=== PATIENT | female | born 1965 | race Caucasian/White ===

== ENCOUNTER 2025-01-30 03:49 | Observation (INO) | payer SELFPAY ==
[2025-01-30 04:04] VITALS: BP 109/60; PULSE 110; RESP 18; TEMP 36.6; O2SAT 98; BMI 14.8
[2025-01-30 04:14] VITALS: O2SAT 98
--- OUTSIDE RECORDS SUMMARY | 2025-01-30 04:22 | XMS_ITS | Encounter Summary ---
Author Organization [facility] Address [address] [place] [address]. [place] [address] Care Team Providers Care Material Expeditor Name Role Phone Zachary Roth MD Primary Care Provid er Meño Gilbert MD Primary Care Provider Rosanna Cespedes MD Primary Care Provider [phone] Gayle Booth MD Primary Care Provider [phone]- [phone] Encounter Details Date Type Department Care Team (Late st Contact Info) Description 04/14/2003 [facility] [address] [place] [address] Sia Diaz MD XXX RETIRED XXX [address], [place] [address] H&P,OP REPORT (Primary Dx) Social History Tobacco Use Types Packs/Day Years Used Date Smoking Tobacco: Never Smokeless Tobacco: Never Alcohol Use Standard Drinks/Week Comments Yes 0 (1 standard drink = 0.6 oz pur e alcohol) once a month Comments No Sex and Gender Information Value Date Recorded Sex Assigned at Not on file Legal 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 She is being admitted to [facility] for h ysteroscopy and D&C. The patient's periods have been irregular and heavy at times, and recently, she had a heavy prolonged period, lasting over two weeks. These periods have been interfering with her l calderon. Because of the persistence of symptoms, decision was made to do a diagnostic and hopefully ther apeutic D&C. PAST MEDICAL HISTORY: The patient has been treated for Hodgkin's disease with lymph no de biopsies in 1982 and 1991. She has had chemotherapy and radiation. SURGERIES: A sectio n in 1991. ALLERGIES: EES, penicillin, and codeine. BLOOD TRANSFUSIONS: Had a transfusion in the past. BLEEDING TENDENCIES: See present illness. FAMILY HISTORY: Parents living and well. Sibling s living and well. SOCIAL HISTORY: The patient is , lives with her and family. HABI TS: Tobacco: None. Alcohol: None. MEDICATIONS: None. REVIEW OF SYSTEMS: Denies headache, shor tness of breath, or chest pain. Appetite good. Bowels regular. Denies frequency, dysuria, or hemat uria. 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 PHYSICAL EXAMINATION: General appearance is that of a healthy- appearing lady in no apparent distress. Blood pressure 108/70, pulse 80, temperature 98, he ight 5'10, weight 166. HEAD: Normocephalic. EYES: Pupils equally reactive to light and accommodat ion. Extraocular muscles intact. EARS: Tympanic membranes clear. NOSE: Clear. THROAT: Not injec eren. NECK: Supple. Thyroid not enlarged. No adenopathy. LUNGS: Clear to auscultation. HEART: No murmurs. Regular rhythm. BREASTS: No masses. ABDOMEN: Soft, nontender. No masses. Liver, spl een, kidneys not felt to be enlarged. BACK: Normal configuration. No CVA tenderness. EXTREMITIES: No cyanosis or edema. SKIN: Normal color and turgor. NEUROLOGIC EXAM: Grossly normal. PELVIC EXAM INATION: External genitalia normal. Vaginal clean. The cervix is clean. The fundus is anterior, no rmal. Adnexa: No masses. RECTOVAGINAL EXAMINATION: Confirms the above. LABORATORY: Pap smear ne gative. Ultrasound reveals retroflexed uterus with thickened endometrium measuring 19 mm, normal sheyla earing ovaries. IMPRESSION AT THE TIME OF ADMISSION: Dysfunctional uterine bleeding in patient with thickened endometrium. PLAN: Hysteroscopy, dilatation and curettage. [id number] _ [place]: Document: [id number] [place], [place] Name: ZOLTAN JOSE HISTORY AND PHYSCIAL Page 2 of 2 LCN: SDS DSC: 04/14/2003 [place], [place] Name: MR#: : Admit Date: JASRoxana BENJY RODRIGUEZ Migel [id number] 1965 04/14/2003 Doctor: SIA DIAZ MD HISTORY AND PHYSICAL Page 1 of 2 00:00 Operative Report-[facility] SIA DIAZ () [Entered: Transcriptio n ([employer])] : 61 1st ASS'T: 2nd ASS'T: PRE-OPERATIVE DIAGNOSIS: Dysfunctional uterine blee ding mainly in the form of menorrhagia. POST-OPERATIVE DIAGNOSIS: Dysfunctional uterine bleeding ma inly in the form of menorrhagia; pending pathology report. OPERATION: Examination under anesthesia; hysteroscopy; fractional dilation and curettage. HISTORY: Zoltan Jose is a 37-year-old para 2-0-0-2, whose last menstrual period began on 03/28/03, whose periods have been irregular, and then re cently had a prolonged bleeding for over two weeks which was heavy. Bleeding has been interfering wi th her life, patient is concerned about it and decision made to do a diagnostic, as well as hopefully therapeutic D&C. Under satisfactory general anesthesia, the patient was prepped and draped in litho andie position. Examination revealed a clean cervix, uterus anterior and normal size, no adnexal mass es felt. The anterior lip of the cervix was grasped with a Umer tenaculum, the uterine cavity was s ounded to 9 cm. The internal os then dilated to #6 Hegar and then a 0 degree hysteroscope was insert ed and visualization was good with the aid of saline. The uterine cavity reveals a lot of ragged end ometrial tissue but no polyps or fibroids or other growths were noted. Hysteroscope was then removed and the internal os dilated to #7 Hegar and the endocervix was then sharply curetted productive of mi nimal if any tissue. This was followed by sharp curettage of the endometrial cavity productive of a moderate amount of appeared to be innocent endometrial tissue. This was followed by exploration with Yinka stone forceps. Small amount of endometrial tissue, no other pathology noted. The uterus onc e more sharply curetted, no tissue obtained. The procedure was terminated. BLOOD LOSS: Estimated t o be 10 cc. Sponge counts were correct. The patient had tolerated the procedure well and was discha rged from the operating room in stable condition. [id number]_ SIA DIAZ MD MT: Document: [id number] [place], [place] Na me: ZOLTAN JOSE LCN: SDS DSC: 04/14/2003 [facility] Name: MR#: : Procedure Date: ZOLTAN JOSE [id number] 04/14/2003 Doctor: SIA DIAZ MD OPERATIVE REPORT Page 1 of 2 Electronically filed by Anum Gillis 2:48 PM documented in this encounter Plan of Treatment Not on file documented as of this encounter Visit Diagnoses Diagnosis H&P,OP REPORT- Primary documented in this encounter Care Teams Material Expeditor Relationship Specialty Start Date End Date Zachary Roth MD PCP - General 06/25/06 10/04/12 Meño Gilbert [place] [address] PCP - General 03/12/03 06/24/06 [place] [address] [place] [address] PCP - General 10/05/12 07/27/23 Gayle Booth MD [facility] [address] [place] [address] PCP - General Hematology & Oncology 07/28/23 documented as of this encounter
--- OUTSIDE RECORDS SUMMARY | 2025-01-30 04:22 | XMS_ITS | Clinical Summary ---
Author Organization [facility] Address [address] [place] [address] Care Team Providers Care Dog Behaviorist Name Role Phone Gayle Booth MD Primary Care Provider [phone] Allergies Active Allergy Reactions Criticality Noted Date Comments Anesthetic Ether 06/26/2006 Super hyper and anxiety. Codeine Nausea and Vomiting 07/28/2023 Erythromycin 01/17/2002 Morphine And Codeine 01/17/2002 Penicillins 01/17/2002 Medications NO ACTIVE MEDICATIONS . Active meclizine (ANTIVERT) 25 MG tablet Take 1 tablet (25 mg) by mouth every 6 hours as needed for dizziness 20 tablet 0 5 Active valACYclovir (VALTREX) 1000 mg tabletIndication s:HSV (herpes simplex virus) infection Take 1 tablet (1,000 mg) by mouth 2 times daily 10 tablet 2 0 Active Active Problems Problem Noted Date Diagnosed Date CARDIOVASCULAR SCREENING; LDL GOAL LESS THAN 160 02/20/2010 Hodgkin's disease of lymph nodes of multiple sit es 03/29/2004 Overview (01/21/2015): Problem list name updated by automated process. Provider to review Embolism and thrombosis 01/17/2002 Overview (01/21/2015): Problem list name updated by automated process. Provider to review Resolved Problems Problem Noted Date Diagnosed Date Resolved Date Hodgkin's disease of lymph n odes of multiple sites 01/17/2002 09/07/2006 Overview (01/21/2015): Problem list name updated by automated process. Provider to review Family History Medical History Relation Comments Family History Negative Father Cancer Maternal Grandfather pancreatic Family History Negative Mother Prostate Cancer Paternal Grandfather Family History Negative Sister 1 Family History Negative Sister 2 Breast Cancer No family hx of Cancer - colorectal No family hx of Relation Status Comments Father Maternal Grandfather Mother Paternal Grandfather Sister 1 Sister 2 Social History Tobacco Use Types Packs/Day Years Used Date Smoking Tobacco: Never Smokeless Tobacco: Never Alcohol Use Standard Drinks/Week Comments Yes 0 (1 standard drink = 0.6 oz pur e alcohol) once a month Adolescent Education Answer Date Record ed Getting School Help Needed Not on file 07/28 Comments No Sex and Gender Information Value Date Recorded Sex Assigned at Not on file Legal Sex Female 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 Gender Identity Not on file Sexual Orientation Not on file 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 on file Not on file Last Filed Vital Signs Vital Sign Reading Time Taken Comments Blood Pressure 126/77 07/28/2023 4:25 AM CDT Pulse 98 07/28/2023 4:25 AM CDT Temperature 36.7 C (98 F) 07/28/2023 4:25 AM CDT Respiratory Rate 20 07/28/2023 4:25 AM CDT Oxygen Saturation 98% 07/28/2023 4:25 AM CDT Inhaled Oxygen Concentration - - Weight 72.6 kg (160 lb) 01/11/2015 1:39 PM CDT Height 177.8 cm (5' 10) 01/11/2015 1:39 PM CDT Body Mass Index 22.96 01/11/2015 1:39 PM CDT Plan of Treatment Health Maintenance Due Date Last Done Comments ADVANCE CARE PLANNING 1965 ANNUAL REVIEW OF HM ORDERS 1963 CT COLONOGRAPHY 1963 FIT 1963 FLEX SIG 1963 sDNA (Cologuard) 1963 COVID-19 VACCINE (#1) 1968 COLONOSCOPY 1973 COLORECTAL CANCER SCREENING 1973 PNEUMOCOCCAL VACCINE 50+ YEARS (1 of 2 - PCV) 1982 ZOSTER VACCINE (1 of 2) 1982 DTAP/TDAP/TD VACCINE (1 - Tdap) 1988 LIPID 2003 YEARLY PREVENTIVE VISIT 01/12/2016 01/11/2015, 04/26 MAMMO SCREENING 12/09/2022 12/09/2020, 11/21, 04/12/2015, Additional history exists PHQ-2 (once per calendar year) 2024 INFLUENZA VACCINE (#1) 2024 02/15/2011 HPV TEST 03/11/2025 01/11/2015 PAP 03/11/2025 03/11/2020, 12/23, 02/06/2012, Additional history exists DIABETES SCREENING 07/27/2026 07/28/2023, 1 05/21/2014, 10/04/2012, Additional history exists RSV VACCINE (1 - 1-dose 75+ series) 2038 HEPATITIS C SCREENING Completed 06/30/2008 HIV SCREENING Completed 06/30/2008 HPV VACCINE (No Doses Required) Completed MENINGITIS VACCINE Aged Out No longer eligible based on patient's age to complete this topic Procedures Procedure Name Priority Date/Time Associated Diagnosis Comments COMPREHENSIVE METABOLIC PANEL STAT 07/28/2023 4:20 AM CDT MA SCREEN WITH IMPLANTS DIGITAL BILAT Routine 04/12/2015 2:16 PM CLOTH HANDLER Visit for screening mammogram HPV HIGH RISK TYPES DNA CERVICAL Routine 01/11/2015 1:45 PM CDT Screening for malignant neoplasm of cervix PAP IMAGED THIN LAYER SCREEN Routine 01/11/2015 12:00 AM CDT Screening for malignant neoplasm of cervix HCL HIV 1 & 2 ANTIBODY Routine 1:34 PM CDT Screening Examination for Venereal Disease HCL HEPATITIS C VIRUS ANTIBODY Routine 06/30/2008 1:34 PM CDT Screening Examination for Venereal Disease from Last 3 Months or Most Recently Relevant to Health Maintenance Results * (ABNORMAL) Comprehensive metabolic panel (07/28/2023 4:20 AM CDT) [facility] Sodium 138 135 - 145 mmol/L 07/28/2023 4:59 AM [facility] Comment:Reference intervals for this test were updated on 01/16/2023 to more accurately reflect our healthy population. There may be differences in the flagging of prior results with similar values performed with this method. Interpretation of those prior results can be made in the context of the updated reference intervals. Potassium 3.9 3.4 - 5.3 mmol/L 07/28/2023 4:59 AM [facility] Carbon Dioxide (CO2) 22 22 - 29 mmol/L 07/28/2023 4:59 AM [facility] Anion Gap 15 7 - 15 mmol/L 07/28/2023 4:[address] [facility] Urea Nitrogen 15.4 8.0 - 23.0 mg/dL 07/28/2023 4:59 AM [facility] Creatinine 0.59 0.51 - 0.95 mg/dL 07/28/2023 4:59 AM [facility] GFR Estimate >90 >60 mL/min/1. 73m2 07/28/2023 4:59 AM [facility] Calcium 9.9 8.8 - 10.2 mg/dL 07/28/2023 4:59 AM CDT LABORATORY Chloride 101 98 - 107 mmol/L 07/28/2023 4:59 AM T LABORATORY Glucose 100(H) 70 - 99 mg/dL 07/28/2023 4:[address] [facility] Alkaline Phosphatase 111 40 - 150 U/L 07/28/2023 4:[address] [facility] Comment:Reference intervals for this test were updated on 03/06/2023 to more accurately reflect our healthy population. There may be differences in the flagging of prior results with similar values performed with this method. Interpretation of those prior results can be made in the context of the updated reference intervals. AST 28 0 - 45 U/L 07/28/2023 4:59 AM CDT LABORATORY Comment:Reference intervals for this test were updated on 10/02/2022 to more accurately reflect our healthy population. There may be differences in the flagging of prior results with similar values performed with this method. Interpretation of those prior results can be made in the context of the updated reference intervals. ALT 24 0 - 50 U/L 07/28/2023 4:59 AM CDT LABORATORY Comment:Reference intervals for this test were updated on 10/02/2022 to more accurately reflect our healthy population. There may be differences in the flagging of prior results with similar values performed with this method. Interpretation of those prior results can be made in the context of the updated reference intervals. Protein Total 7.2 6.4 - 8.3 g/dL 07/28/2023 4:59 AM CDT LABORATORY Albumin 3.8 3.5 - 5.2 g/dL 07/28/2023 4:59 AM CDT LABORATORY Bilirubin Total 0.6 <=1.2 mg/dL 07/28/2023 4:59 AM CDT LABORATORY Blood STRUCTURE OF LEFT UPPER LIMB / Unknown Venipuncture / Unknown 07/28/2023 4:20 AM CDT 07/28/2023 4:29 AM CDT Meño Chandra MD LAB - BLOOD ORDERABLES Jael ash Result LABORATORY [facility] [address] 1[address] floor, Room [address] [place] [address] * MA Screen w Implants Digital Bilat (04/12/2015 2:16 PM CLOTH HANDLER) Anatomical Region Laterality Modality Breast Bilateral Mammography Impressions 04/12/2015 2:23 PM CLOTH HANDLER IMPRESSION: BI-RADS CATEGORY: 2 - Benign Finding(s). RECOMMENDED FOLLOW-UP: Annual Mammography Exam results letter mailed to patient. LASHON DOTY MD Narrative 04/12/2015 2:23 PM CLOTH HANDLER SCREENING MAMMOGRAM, BILATERAL, DIGITAL PUNEET w/CAD - 04/12/2015 2:16 PM. BREAST SYMPTOMS: No current breast complaints. COMPARISON: 10/28/2012. BREAST DENSITY: Heterogeneously dense. COMMENTS: No findings of suspicion for malignancy. Bilateral breast implants obscure portions of underlying breast parenchymal tissue, limiting sensitivity. Procedure Note Lashon Doty MD - 04/12/2015 SCREENING MAMMOGRAM, BILATERAL, DIGITAL PUNEET w/CAD - 04/12/2015 2:16 PM. BREAST SYMPTOMS: No current breast complaints. COMPARISON: 10/28/2012. BREAST DENSITY: Heterogeneously dense. COMMENTS: No findings of suspicion for malignancy. Bilateral breast implants obscure portions of underlying breast parenchymal tissue, limiting sensitivity. IMPRESSION IMPRESSION: BI-RADS CATEGORY: 2 - Benign Finding(s). RECOMMENDED FOLLOW-UP: Annual Mammography Exam results letter mailed to patient. LASHON DOTY MD Erma De La Cruz MD IM MAMMOGRAPHY ORDERABLES Final Result * HPV High Risk Types DNA Cervical (01/11/2015 1:45 PM CDT) HPV 16 DNA Negative [facility] HPV 18 DNA Negative [facility] Other HR HPV Negative NEG [facility] ITY [facility] Final Diagnosis This patient's sample is negative for HPV DNA. The [place] [employer] (ACOG) recommends any woman between 30-65 years old who receives negative test results on both Pap cytology screening and HPV DNA testing should be rescreened in 5 years. (Note) METHODOLOGY: The Koko neftaly 4800 system uses automated extraction, simultaneous amplification of HPV (L1 region) and beta-globin, followed by real time detection of fluorescent labeled HPV and beta globin using specific oligonucleotide probes . The test specifically identifies types HPV 16 DNA and HPV 18 DNA while concurrently detecting the rest of the high risk types (31, 33, 35, 39, 45, 51, 52, 56, 58, 59, 66 or 68). COMMENTS: This test is not intended for use as a screening device for women under age 30 with normal cervical cytology. Results should be correlated with cytologic and histologic findings. Close clinical followup is recommended. This test was developed and its performance characteristics determined by the [facility], [facility]. It has not been cleared or approved by the FDA. The laboratory is regulated under CLIA as qualified to perform high-complexity testing. This test is used for clinical purposes. It should not be regarded as investigational or for research. [facility] Specimen Description Cervical Cells [id number] [facility] 01/11/2015 1:45 PM CDT 01/11/2015 2:40 PM CDT us Sia Diaz MD LAB - BLOOD ORDERABLES Final Result [address] [address] * PAP imaged thin layer, screen (01/11/2015 12:00 AM CDT) PAP NIL COPATH Copath Report Patient Name: ESTEPHANIA JOSE MR#: [id number] Specimen #: [id number] Collected: 01/11/2015 Received: 01/12/2015 Reported: 01/14/2015 14:41 Ordering Phy(s): SIA DIAZ SPECIMEN/STAIN PROCESS: Pap imaged thin layer prep screening (Surepath, FocalPoint with guided screening) Pap-Cyto x 1, Reflex HPV if NIL/ASCUS/LSIL x 1 SOURCE: Cervical, endocervical Pap imaged thin layer prep screening (Surepath, FocalPoint with guided screening) SPECIMEN ADEQUACY: Satisfactory for evaluation. -Transitional zone component could not be determined due to atrophy. CYTOLOGIC INTERPRETATION: Negative for Intraepithelial Lesion or Malignancy Electronically signed out by: Pablo Monroy Processed and screened at [facility], [facility] CLINICAL HISTORY: LMP: 05/14/04 Previous normal pap Date of Last Pap: 02/06/12, Papanicolaou Test Limitations: Cervical cytology is a screening test with limited sensitivity; regular screening is critical for cancer prevention; Pap tests are primarily effective for the diagnosis/preventi on of squamous cell carcinoma, not adenocarcinomas or other cancers. TESTING LAB LOCATION: [address] [address] COLLECTION SITE: Client: [facility] Location: [facility] (S) COP[facility] Cytologic material (specimen) 01/11/2015 01/12/2015 10:09 AM CDT us Sia Diaz MD LAB - OPTIME CLINICAL SPECIM EN Final Result COPATH * HCV ANTIBODY (06/30/2008 1:34 PM CDT) Hepatitis C Antibody Negative NEG [facility] 06/30/2008 1:34 PM CDT 06/30/2008 1:39 PM CDT us Sia Diaz MD LABORATORY Final Result Performing Organization Address City/[facility]/ZIP Co de Phone Number [address] [address] * HIV 1 & 2, SCREEN (06/30/2008 1:34 PM CDT) HIV 1&[address]G [facility] 06/30/2008 1:34 PM CDT 06/30/2008 1:39 PM CDT us Sia iDaz MD LABORATORY Final Result Performing Organization Address City/[facility] Co de Phone Number [address] [address] from Last 3 Months or Most Recently Relevant to Health Maintenance Care Teams Dog Behaviorist Relationship Specialty Start Date End Date Gayle Booth MD [facility] [address] [address] PCP - General Hematology & Oncology 07/28/23
[2025-01-30] MEDS: 5 % DEXTROSE/0.9% SOD CHLORIDE 1,000 ML 75 ML IV (04:32)
[2025-01-30 05:00] VITALS: PULSE 104; RESP 18; O2SAT 97
--- NOTE | 2025-01-30 05:20 | ED.ABDPAIN ---
HPI - Abdominal Pain General Date Seen: 01/30/25 Chief Complaint: Abdominal Pain Stated Complaint: abdominal pain Time Seen by Provider: 01/30/25 03:57 Source: patient and family Mode of arrival: ambulatory Limitations: no limitations Related Data Home Medications ?Medication ?Instructions ?Recorded ?Confirmed haloperidol PO 01/30/25 lorazepam .ROUTE 01/30/25 oxycodone PO 01/30/25 Allergies Allergy/AdvReac Type Severity Reaction Status Date / Time azithromycin AdvReac Verified 01/30/25 04:17 Review of Systems Narrative Review of systems is outlined above otherwise noted to be negative. PFSH PFS Social History Smoking Status: Never smoker How often do you have a drink containing alcohol: never AUDIT-C Alcohol total score: 0 Non-prescribed substance use: denies use Exam Narrative: Exam Narrative: Vitals noted. HEENT: Conjunctiva clear. Scleral icterus. Mucous membranes are dry. Lungs: Clear to auscultation in all mccall. No wheezes, rales, rhonchi. Heart: Regular rate and rhythm without murmur. Abdomen: She has a large tender mass in her mid abdomen. Bowel sounds are normal. Extremities: No cyanosis or edema. Good distal pulses. Skin: She is jaundiced. Neurologic: Awake, alert, fully oriented. Neurologic exam is nonfocal. Const: Vital Signs, click to edit/add: Vital Signs - 24 hr 01/30/25 04:04 01/30/25 04:14 01/30/25 05:00 Temperature 98 F Pulse Rate [Pulse Oximeter] 110 H 104 H Respiratory Rate 18 18 Blood Pressure [Ri t Upper Arm] 109/60 Pulse Oximetry 98 98 97 Oxygen Delivery Me thod Room Air Room Air Course Course ED Course: Patient seen and examined. IV is established and she is given Dilaudid 0.5 mg IV with some relief of pain. D5 normal saline is running at 75 mL/hour. I spoke with the hospitalist from [facility] who kindly agrees to admit her to the hospital for pain control and to get her re-established with hospice. No diagnostic testing was done. She is DNR DNI and is seeking comfort measures only. Vital Signs Vital signs: Initial Vital Signs Temperature 98 F 01/30/25 04:04 Temperature Source Temporal Artery Scan 01/30/25 04:04 Pulse Rate 110 H 01/30/25 04:04 Respiratory Rate 18 01/30/25 04:04 Blood Pressure 109/60 01/30/25 04:04 Blood Pressure Mean 76 01/30/25 04:04 Blood Pressure Position Supine 01/30/25 04:04 Pulse Oximetry 98 01/30/25 04:04 Oxygen Delivery Method Room Air 01/30/25 04:04 Vital Signs Temperature 98 F 01/30/25 04:04 Pulse Rate 110 H 01/30/25 04:04 Respiratory Rate 18 01/30/25 04:04 Blood Pressure 109/60 01/30/25 04:04 Pulse Oximetry 98 01/30/25 04:04 Oxygen Delivery Method Room Air 01/30/25 04:04 Temperature 98 F 01/30/25 04:04 Pulse Rate 104 H 01/30/25 05:00 Respiratory Rate 18 01/30/25 05:00 Blood Pressure 109/60 01/30/25 04:04 Pulse Oximetry 97 01/30/25 05:00 Oxygen Delivery Method Room Air 01/30/25 05:00 Medications Administered Medications: Generic Name Dose Route Start Last Admin Trade Name Freq PRN Reason Stop Dose Admin Hydromorphone HCl 0.5 mg 01/30/25 04:12 01/30/25 04:17 Hydromorphone 0.5 Mg/0.5 Ml Inj IVP 0.5 mg Q10M PRN Administration Dextrose/Sodium Chloride 1,000 mls @ 75 mls/hr 01/30/25 04:10 01/30/25 04:32 5 % Dextrose/0.9% Sod Chloride IV 75 mls/hr .[id number] ROSENDO Administration Discharge Plan Discharge Clinical Impression: Pancreatic cancer, Abdominal pain Patient Disposition: Admitted As Observation Condition: Guarded
[2025-01-30 05:41] VITALS: BP 95/48; PULSE 119; RESP 14; RESP 18; O2SAT 95; O2SAT 96
--- NOTE | 2025-01-30 05:54 | W.PM.THH&P_ITS ---
Telehealth- H&P: HPI History of Present Illness Date Seen: 01/30/25 Chief complaint: abdominal pain Narrative: Estephania Adamson is seen as an Interactive Telehealth visit. 59-year-old female with a history of end-stage pancreatic cancer who presents to hospital with intractable abdominal pain. Patient has been dealing with chronic pain on and off for some time. Majority of her medical care is taken in the [facility]. Recently she was taken off of hospice to undergo a pancreatic stent which improved her symptoms. Unfortunately her pain has become significantly worse. She has become increasingly jaundiced. The family has brought the patient to the ER for pain control and that goal to go back on hospice. In the ER no labs were taken. No imaging was obtained. Patient was administered Dilaudid. The goal was for the patient to get comfortable. I spoke with the patient's and sister at the bedside. They are agreeable to this plan. Review of Systems Status of ROS: Reports: unobtainable due to mental status [facility] Medical History (Updated 01/30/25 @ 05:28 by Franck Fernandez MD) Pancreatic cancer ?C25.9 - Malignant neoplasm of pancreas, unspecified (ICD-10) GERD (gastroesophageal reflux disease) ?K21.9 - Gastro-esophageal reflux disease without esophagitis (ICD-10) History of Hodgkin's disease ?Z85.71 - Personal history of Hodgkin lymphoma (ICD-10) Surgical History (Updated 01/30/25 @ 05:28 by Franck Fernandez MD) History of insertion of pancreatic stent ?Z98.890 - Other specified postprocedural states (ICD-10) Social History What is your current living situation?: I presently have a place to live Problems where you live: no known problems In the past 12 months, utilities in danger of being shut off: no In past 12 months, lack of transportation kept you from medical appts, meetings, work, or getting things needed for daily living: no In the past 12 mos, have been you worried that your food would run out before you had money to buy more?: never true In the past 12 mos, the food you bought just didn't last and you didn't have money to buy more?: never true Highest level of school completed/degree received: some college, no degree Smoking Status: Never smoker How often do you have a drink containing alcohol: never AUDIT-C Alcohol total score: 0 Non-prescribed substance use: denies use How often does anyone, including family, friends and others, physically hurt you : never How often does anyone, including family, friends and others, insult or talk down to you: never How often does anyone, including family, friends and others, threaten you with harm: never How often does anyone, including family, friends and others, scream or curse at you: never service: No Meds Home Medications and Allergies Home Medications ?Medication ?Instructions ?Recorded ?Confirmed ?Type haloperidol PO 01/30/25 History lorazepam .ROUTE 01/30/25 History oxycodone PO 01/30/25 History Allergies Allergy/AdvReac Type Severity Reaction Status Date / Time azithromycin AdvReac Verified 01/30/25 05:44 codeine AdvReac Verified 01/30/25 05:44 Exam Narrative Exam Narrative: Physical Exam General: Vitals signs reviewed, alert and in acute distress. She is moaning in pain. She appears to be cachectic in appearance. She is jaundiced. HEENT: PERRL, scleral icterus NECK: Thin, supple HEART: RRR, tachycardic LUNGS: Clear to auscultation, good air movement ABDOMEN: Distended, firm, limited bowel sounds EXTREMITIES: warm without cyanosis, no edema NEURO: Alert and mildly responsive PSYCH: Distressed SKIN: Jaundice Const Vital Signs, click to edit/add: Vital Signs - 24 hr 01/30/25 04:04 01/30/25 04:14 01/30/25 05:00 Temperature 98 F Pulse Rate [Pulse Oximeter] 110 H 104 H Respiratory Rate 18 18 Blood Pressure [Right Arm] Blood Pressure [Right Upper Arm] 109/60 Pulse Oximetry 98 98 97 Oxygen Delivery Method Room Air Room Air 01/30/25 05:41 Temperature Pulse Rate [Pulse Oximeter] 119 H Respiratory Rate 14 Blood Pressure [Right Arm] 95/48 L Blood Pressure [Right Upper Arm] Pulse Oximetry 95 Oxygen Delivery Method Room Air Assessment and Plan Assessment and plan (1) Pancreatic cancer: Status: Acute (2) Abdominal pain: Status: Acute (3) GERD (gastroesophageal reflux disease): Status: Acute Plan This patient has end-stage pancreatic cancer. We are admitting her for pain control. I have ordered IV Dilaudid 1 mg every 1 hour as needed. She did undergo 0.5 mg which lasted about 10 to 20 minutes. Her pain appears to be focused in the abdomen. She also has not had a bowel movement in many days. I have ordered a Fleet enema. In addition she has not urinated. Will be placing a Goff catheter. The goal is for this patient to be discharged home with hospice. She may eventually go with the Goff catheter. Family is agreeable to this plan. This patient is a DO NOT RESUSCITATE. Telehealth Visit: Todays History and Physical is via interactive telehealth by Dr Jay Lao MD The Patient is located [facility]: Physician is located at [facility]. Nursing staff assisted in the patient's exam. The visit being done today meets criteria for a telehealth visit and the patient or patient's parent/guardian is aware the visit is a telehealth visit. Camera Start time 600 Camera End time 630 Telehealth: Statement Statement Telehealth Visit: Today's History and Physical is provided via interactive telehealth by Jay Lao MD.? Patient is located at [facility].? Provider is located at [facility].? Nursing staff assisted with the patient's exam. The visit being done today meets criteria for a telehealth visit and the patient or patient?s parent/guardian is aware the visit is a telehealth visit.
[2025-01-30] MEDS: OXYCODONE (CR) 10 MG TAB.ER.12H PO (06:56)
[2025-01-30] MEDS: MORPHINE 10 MG/0.5 ML ORAL SOLN PO ×3 (07:07→13:56)
--- NOTE | 2025-01-30 10:32 | PC.SOCIAL ---
Addendum entered by MIRA Bender 01/30/25 13:59: Discharge planning: Pt's son and arrived around 1:50pm to pick the pt up. group worker notified Lenora at [facility] who stated that they would be out to the house around 2:45pm-3:00pm. Social work to follow-up as needed. Addendum entered by MIRA Bender 01/30/25 13:44: Discharge planning: group worker had left a message with pt's earlier and also called his phone again a few times and no response. Nursing staff have tried to call him, as well. The couple does not have a land line at their home, so only way to get a hold of the is his cell phone, which he is not responding too. Social work to follow-up as needed. Addendum entered by MIRA Bender 01/30/25 13:41: Discharge planning: Pt's discharge has been delayed because hospital staff cannot get a hold of the pt's to pick her up. group worker notified Amy at [facility]. Pt's sister, Katherine, is trying to get a hold of pt's , as well, and also the couple's adult son. Social work to follow-up as needed. Addendum entered by MIRA Bender 01/30/25 12:45: Discharge planning: group worker faxed the pt's discharge summary which included the admit to hospice order in it to [facility] at fax number #[phone]. Social work to follow-up as needed. Addendum entered by BENJI BenderW 01/30/25 12:27: Discharge planning: Pt will discharge back home today with her , sister and good friend as caretakers along with [facility]. The plan is for [facility] to meet the pt and her family at her home at 2pm for the hospice intake. Social work to follow-up as needed. Original Note: Discharge planning: group worker met with the pt, her and her sister, Katherine, to discuss discharge planning and the families wish for the pt to go back on hospice. Pt has used [facility] in the past and they have worked well with the pt's private insurance plan. group worker reached out to [facility] #[phone] to notify them about the pt's wishes and to get the fax number to send a referral. group worker spoke to Hailey at [facility] and he was familiar with pt. Hailey provided this worker with the fax number to [facility] #[phone] and this social media manager faxed over the referral. Hailey will reach back out tot his worker after the referral is reviewed and he talks with the nursing team about when they can admit the pt to hospice services again. Social work to follow-up as needed.
--- NOTE | 2025-01-30 12:15 | P.DS_ITS ---
DS: Providers Provider Date Seen: 01/30/25 Date of admission: 01/30/25 05:24 Primary care physician: Not a Local Provider Admitting Clinician: Jay Lao MD Attending Physician on discharge: Nanda Mei MD Date of Discharge: 01/30/25 DS: Diagnosis Discharge Diagnosis (1) Pancreatic cancer: Status: Acute Problem details: - diagnosed 04/2023; [id number] (2) Abdominal pain: Status: Acute (3) GERD (gastroesophageal reflux disease): Status: Acute DS: Summary Hospital Course Hospital Course: Angella is a 59-year-old female with known history of pancreatic cancer, diagnosed in 2023, who presented to the [facility] emergency room for intractable abdominal pain. She had been under the care of hospice services; recently revoked services for a stent placement. Last night had severe worsening of pain that was not improved with her home oxycodone dosages; family brought her to the emergency room for evaluation and assistance with pain management. Goals upon admission were to readmit to hospice, improve pain management, and discharge back home. She has family and friends that can provide 24 hour care. Goff catheter placed in the emergency room. Fentanyl patch placed on admission with improvement of symptoms; previous hospice organization was able to readmit patient today at home. She is discharged home for hospice admission on 01/30/2025. Sister and updated bedside, questions answered. Status at Discharge Functional status at discharge: bed bound Time Spent with Patient Time attestation: Total time spent providing and/or coordinating discharge services: Time spent: Greater than 30 minutes Specific discharge activities: Multidisciplinary team discussion, collaboration with social work team, med rec Exam Narrative: Exam Narrative: Angella is cachectic with abdominal distension, she is resting comfortably in bed when I see her Dark urine noted in Goff bag Const: Vital Signs, click to edit/add: Vital Signs - 24 hr 01/30/25 04:04 01/30/25 04:14 01/30/25 05:00 Temperature 98 F Pulse Rate [Pulse Oximeter] 110 H 104 H Respiratory Rate 18 18 Blood Pressure [Ri ght Arm] Blood Pressure [Ri ght Upper Arm] 109/60 Pulse Oximetry 98 98 97 Oxygen Delivery Me thod Room Air Room Air 01/30/25 05:41 01/30/25 05:41 Temperature Pulse Rate [Pulse Oximeter] 119 H Respiratory Rate 14 18 Blood Pressure [Ri ght Arm] 95/48 L Blood Pressure [Ri ght Upper Arm] Pulse Oximetry 95 96 Oxygen Delivery Me thod Room Air Room Air Discharge Plan Discharge Disposition: Xfer Home- (Hospice) Date of Admission: 01/30/25 05:24 Attending Provider on Discharge: Nanda Mei Primary Care Provider: Provider,Not a Local Condition: Guarded Anticipated Discharge Date/Time: 01/30/25 12:07 Discharge Medications: New fentanyl 12 mcg/hr Patch 72 Hour 1 patch transdermal Q72H Qty: 5 0RF Continued famotidine 10 mg tablet 10 mg PO QID PRN haloperidol 0.5 mg tablet 0.5 mg PO Q4H PRN lorazepam 0.5 mg tablet 0.5 mg PO BID PRN (Reason: anxiety) oxycodone 5 mg tablet 5 - 10 mg PO Q4H PRN ibuprofen [Advil] 200 mg tablet 600 mg PO BID PRN Discharge Orders: Discharge Order (Routine); Ordered 01/30/25 Ordered By: Nanda Mei Additional Instructions: 12mcg Fentanyl patch placed 01/30/25 am for pain control. Goff catheter placed 10/10am, will leave in for comfort. Activity Detail: as tolerated Diet Detail: as tolerated Follow Up Appointments: Provider,Not a Local [Primary Care Provider, Family Practice] Forms: Patient Belongings, MyHealth Info Instructions Discharge Comments: Hospice to evaluate and admit. Diagnosis: Pancreatic Cancer.
--- NOTE | 2025-01-30 16:03 | PC.NURSE ---
Discharge note pt was unaware of surroundings, would open eyes to name throughout shift. Prn meds given per [employer] and Fentanyl patch in place at time of discharge, pt d/c home with and son via wheelchair at 1405. Hospice to be started at arrival to home with [facility].
== END 2025-01-30 14:05 | disposition hospice, home (50) ==
LOC: ED 04:32 → MEDSURG 05:24
PROVIDERS: Admitting Provider Student in an Organized Health Care Education/Training Program; Emergency Provider Family Medicine; Visit Provider Student in an Organized Health Care Education/Training Program
DX: C25.9 Malignant neoplasm of pancreas, unspecified (principal); R10.9 Unspecified abdominal pain; K21.9 Gastro-esophageal reflux disease without esophagitis
CPT/HCPCS: 51798; 94761; 96374; 96376; 99282; 99285; A9270; G0378; J1171; J7042